=== PATIENT | male | born 1945 ===

== ENCOUNTER 2023-08-13 10:23 | Outpatient (CLI) | payer MEDICARE, OTHER | END 2023-08-13 10:24 | disposition home or self-care (01) | LOC: BICMRI 10:23 | PROVIDERS: ATTEND Orthopaedic Surgery | DX: M54.2 Cervicalgia (principal); M25.511 Pain in right shoulder; M85.9 Disorder of bone density and structure, unspecified; M47.812 Spondylosis without myelopathy or radiculopathy, cervical region; M48.02 Spinal stenosis, cervical region; M89.38 Hypertrophy of bone, other site; M50.31 Other cervical disc degeneration, high cervical region; M50.321 Other cervical disc degeneration at C4-C5 level; M50.322 Other cervical disc degeneration at C5-C6 level | CPT/HCPCS: 72141 ==

== ENCOUNTER 2023-09-19 09:23 | Outpatient (CLI) | payer MEDICARE, OTHER | END 2023-09-19 09:24 | disposition home or self-care (01) | LOC: BICMAMMO 09:23 | PROVIDERS: ATTEND Orthopaedic Surgery | DX: M85.9 Disorder of bone density and structure, unspecified (principal) | CPT/HCPCS: 77080 ==